=== PATIENT | male | born 1970 | race African-American/Black ===

== ENCOUNTER 2021-04-08 01:03 | Inpatient (IN) | payer OTHER ==
[2021-04-08 01:38] VITALS: BMI 19.7
[2021-04-08] MEDS ORDERED: MAGNESIUM CITRATE 300 ML BOTTLE PO PRN (02:29)
[2021-04-08] MEDS ORDERED: BISMUTH SUBSALICYLATE 524 MG/30 ML PO PRN (02:29)
[2021-04-08] MEDS ORDERED: ACETAMINOPHEN 325 MG TABLET (FP) PO PRN ×2 (02:29)
[2021-04-08] MEDS ORDERED: MENTHOL/PHENOL 1 EACH UD MM PRN (02:29)
[2021-04-08] MEDS ORDERED: NICOTINE POLACRILEX 2 MG GUM BUC PRN (02:29)
[2021-04-08] MEDS ORDERED: MAGNESIUM HYDROX 2400MG/30ML ORAL SUSPENSION 30 ML CUP PO PRN (02:29)
[2021-04-08] MEDS ORDERED: ONDANSETRON *ODT* 4 MG TABLET SL PRN (02:29)
[2021-04-08] MEDS ORDERED: MAG HYDROX/AL HYDROX/SIMETH 30 ML UNIT-DOSE CUP PO PRN (02:29)
[2021-04-08] MEDS: IBUPROFEN 400 MG TABLET (FP) PO PRN ×2 (06:03→22:25)
[2021-04-08] MEDS: METHOCARBAMOL 500 MG TABLET PO PRN ×2 (06:04→22:27)
[2021-04-08] MEDS: PRENATAL VITAMINS W/ FOLIC ACID TABLET (FP) PO SCH (10:25)
[2021-04-08] MEDS: NICOTINE 14 MG/24 HOURS TOPICAL PATCH TD SCH (10:25)
[2021-04-08] MEDS: methaDONE HCL 40 MG DISPERSABLE TABLET PO SCH (10:47)
[2021-04-08 13:00] LABS: HIV INTERPRETATION NEGATIVE (NEGATIVE)
[2021-04-08] MEDS: MINERAL OIL/PETROLAT/WATER TOPICAL CREAM 113 GM JAR TP SCH ×2 (15:22→22:23)
[2021-04-08] MEDS: MELATONIN 5 MG TABLETS PO SCH (22:23)
[2021-04-08] MEDS: THIAMINE HCL 100 MG TABLET (FP) PO SCH (22:23)
[2021-04-09] MEDS: methaDONE HCL 40 MG DISPERSABLE TABLET PO SCH (06:15)
[2021-04-09] MEDS: METHOCARBAMOL 500 MG TABLET PO PRN ×2 (06:15→22:24)
[2021-04-09] MEDS: IBUPROFEN 400 MG TABLET (FP) PO PRN (06:15)
[2021-04-09 09:58] LABS: HEMATOCRIT 39.7 % (35.4-49); HEMOGLOBIN 13.2 GM/dL (11.7-16.9); MCH 29.1 pg (25.7-33.7); MCHC 33.3 g/dl (32.0-35.9); MEAN CELL VOLUME 87.3 fl (80-96); MEAN PLT VOLUME 8.2 fl (7.5-11.1); PLATELET COUNT 262 10^3/uL (134-434); RBC 4.55 M/mm3 (4.00-5.60); RDW 14.4 % (11.9-15.9); WHITE BLOOD COUNT 3.1 K/mm3 (4.0-10.0)
[2021-04-09 10:06] LABS: ALBUMIN 3.1 g/dl (3.4-5.0); BLOOD UREA NITROGEN 11.8 mg/dL (7-18); CALCIUM 8.6 mg/dL (8.5-10.1)
[2021-04-09 10:10] LABS: CREATININE 0.9 mg/dL (0.55-1.3)
[2021-04-09 10:11] LABS: BILIRUBIN,TOTAL 0.7 mg/dL (0.2-1); TOT PROT 6.8 g/dl (6.4-8.2)
[2021-04-09] MEDS: MINERAL OIL/PETROLAT/WATER TOPICAL CREAM 113 GM JAR TP SCH ×2 (10:17→22:23)
[2021-04-09] MEDS: PRENATAL VITAMINS W/ FOLIC ACID TABLET (FP) PO SCH (10:18)
[2021-04-09] MEDS: NICOTINE 14 MG/24 HOURS TOPICAL PATCH TD SCH (10:19)
[2021-04-09] MEDS: THIAMINE HCL 100 MG TABLET (FP) PO SCH (22:22)
[2021-04-09] MEDS: MELATONIN 5 MG TABLETS PO SCH (22:22)
[2021-04-10] MEDS: IBUPROFEN 400 MG TABLET (FP) PO PRN (05:50)
[2021-04-10] MEDS: methaDONE HCL 40 MG DISPERSABLE TABLET PO SCH (05:50)
[2021-04-10] MEDS: METHOCARBAMOL 500 MG TABLET PO PRN (05:50)
[2021-04-10 08:51] VITALS: BP 107/60; PULSE 65; TEMP 97.3
[2021-04-10] MEDS: PRENATAL VITAMINS W/ FOLIC ACID TABLET (FP) PO SCH (09:30)
[2021-04-10] MEDS: MINERAL OIL/PETROLAT/WATER TOPICAL CREAM 113 GM JAR TP SCH (09:30)
[2021-04-10] MEDS: NICOTINE 14 MG/24 HOURS TOPICAL PATCH TD SCH (09:30)
== END 2021-04-10 10:29 | disposition home or self-care (01) | DRG 774 ==
LOC: YASAS 01:03 → Y3N 02:34 → UNDOADMIN 02:34 → Y3N 04-09 02:34
PROVIDERS: ADMIT Allergy & Immunology; ATTEND Allergy & Immunology
PROC: HZ2ZZZZ Detoxification Services for Substance Abuse Treatment (ICD-10-PCS; principal; 2021-04-09)
DX: F10.230 Alcohol dependence with withdrawal, uncomplicated (principal); F14.20 Cocaine dependence, uncomplicated; F12.20 Cannabis dependence, uncomplicated; F17.210 Nicotine dependence, cigarettes, uncomplicated; J45.20 Mild intermittent asthma, uncomplicated; K21.9 Gastro-esophageal reflux disease without esophagitis; Z59.01 Sheltered homelessness; Z56.0 Unemployment, unspecified
CPT/HCPCS: 36415; 80053; 85027; 86780; 87389; 93005; 93010; C9803; U0003; U0005

== ENCOUNTER 2021-04-22 21:52 | Inpatient (IN) | payer OTHER ==
[2021-04-22 22:22] VITALS: BMI 19.3
[2021-04-23] MEDS ORDERED: MENTHOL/PHENOL 1 EACH UD MM PRN (00:15)
[2021-04-23] MEDS ORDERED: guaiFENesin 200 MG/10 ML 10 ML UNIT-DOSE CUPS PO PRN (00:15)
[2021-04-23] MEDS ORDERED: NICOTINE 10 MG CARTRIDGE (INHALER) IH PRN (00:15)
[2021-04-23] MEDS ORDERED: MAGNESIUM CITRATE 300 ML BOTTLE PO PRN (00:15)
[2021-04-23] MEDS ORDERED: BISMUTH SUBSALICYLATE 524 MG/30 ML PO PRN (00:15)
[2021-04-23] MEDS ORDERED: NALOXONE (NARCAN) HCL 4 MG/0.1 ML SPRAY NS PRN (00:15)
[2021-04-23] MEDS ORDERED: DICYCLOMINE HCL 10 MG CAPSULE PO PRN (00:15)
[2021-04-23] MEDS ORDERED: ACETAMINOPHEN 325 MG TABLET (FP) PO PRN ×2 (00:15)
[2021-04-23] MEDS ORDERED: MAG HYDROX/AL HYDROX/SIMETH 30 ML UNIT-DOSE CUP PO PRN (00:15)
[2021-04-23] MEDS ORDERED: NALOXONE HCL 0.4 MG/ML VIAL IM PRN (00:15)
[2021-04-23] MEDS ORDERED: MAGNESIUM HYDROX 2400MG/30ML ORAL SUSPENSION 30 ML CUP PO PRN (00:15)
[2021-04-23] MEDS ORDERED: METHOCARBAMOL 500 MG TABLET PO PRN (00:15)
[2021-04-23] MEDS ORDERED: P-EPHED 60MG/TRIPROLIDI 2.5MG TABLET PO PRN (00:15)
[2021-04-23] MEDS ORDERED: TRIMETHOBENZAMIDE HCL 200MG/2ML INJ IM ONE (00:18)
[2021-04-23] MEDS: hydrOXYzine PAMOATE 25 MG CAPSULE (FP) PO SCH ×6 (06:50→23:41)
[2021-04-23] MEDS: IBUPROFEN 400 MG TABLET (FP) PO PRN ×2 (07:53→15:03)
[2021-04-23] MEDS ORDERED: methaDONE HCL 10 MG TABLET PO ONE (09:01)
[2021-04-23] MEDS: PRENATAL VITAMINS W/ FOLIC ACID TABLET (FP) PO SCH (10:27)
[2021-04-23] MEDS: NICOTINE 21 MG/24 HOURS TOPICAL PATCH TD SCH (10:28)
[2021-04-23] MEDS ORDERED: methaDONE 40 MG, methaDONE 10 MG PO ONE (11:15)
[2021-04-23] MEDS ORDERED: cloNIDine HCL 0.1 MG TABLET PO PRN (11:16)
[2021-04-23] MEDS ORDERED: FAMOTIDINE 10 MG TABLET PO SCH (11:30)
[2021-04-23] MEDS: ONDANSETRON *ODT* 4 MG TABLET SL PRN (16:20)
[2021-04-23] MEDS ORDERED: TRIMETHOBENZAMIDE HCL 200MG/2ML INJ IM PRN (18:26)
[2021-04-23] MEDS ORDERED: diazePAM 5 MG TABLET PO PRN (18:55)
[2021-04-23] MEDS: PANTOPRAZOLE 40 MG TABLET PO ONE ×2 (20:30→23:41)
[2021-04-23] MEDS ORDERED: MELATONIN 5 MG TABLETS PO SCH (22:00)
[2021-04-23] MEDS ORDERED: THIAMINE HCL 100 MG TABLET (FP) PO SCH (22:00)
[2021-04-24] MEDS: ONDANSETRON *ODT* 4 MG TABLET SL PRN ×2 (01:47→09:12)
[2021-04-24] MEDS ORDERED: TRIMETHOBENZAMIDE HCL 200MG/2ML INJ IM ONE (04:19)
[2021-04-24] MEDS ORDERED: methaDONE HCL 10 MG TABLET PO SCH (06:00)
[2021-04-24] MEDS: hydrOXYzine PAMOATE 25 MG CAPSULE (FP) PO SCH ×3 (06:50→14:01)
[2021-04-24] MEDS ORDERED: methaDONE 40 MG, methaDONE 10 MG PO ONE (08:00)
[2021-04-24] MEDS ORDERED: methaDONE HCL 10 MG TABLET ONE (08:47)
[2021-04-24] MEDS ORDERED: methaDONE HCL 40 MG DISPERSABLE TABLET ONE (08:47)
[2021-04-24 09:20] VITALS: BP 132/77; PULSE 51; TEMP 99.6
[2021-04-24] MEDS: NICOTINE 21 MG/24 HOURS TOPICAL PATCH TD SCH (10:54)
[2021-04-24] MEDS: PRENATAL VITAMINS W/ FOLIC ACID TABLET (FP) PO SCH (10:54)
[2021-04-24] MEDS ORDERED: methaDONE HCL 10 MG TABLET PO ONE (11:00)
[2021-04-24 12:13] LABS: HEMATOCRIT 40.3 % (35.4-49); HEMOGLOBIN 13.5 GM/dL (11.7-16.9); MCHC 33.5 g/dl (32.0-35.9); MEAN CELL VOLUME 86.6 fl (80-96); MEAN PLT VOLUME 7.9 fl (7.5-11.1); PLATELET COUNT 322 10^3/uL (134-434); RBC 4.65 M/mm3 (4.00-5.60); RDW 13.6 % (11.9-15.9)
[2021-04-24 12:21] LABS: BLOOD UREA NITROGEN 9.3 mg/dL (7-18); CALCIUM 8.6 mg/dL (8.5-10.1)
[2021-04-24 12:25] LABS: CREATININE 0.8 mg/dL (0.55-1.3)
[2021-04-24 12:26] LABS: BILIRUBIN,TOTAL 0.9 mg/dL (0.2-1); TOT PROT 6.9 g/dl (6.4-8.2)
[2021-04-25] MEDS ORDERED: methaDONE 40 MG, methaDONE 10 MG PO SCH (06:00)
== END 2021-04-24 10:10 | disposition short-term general hospital (02) | DRG 773 ==
LOC: YASAS 21:52 → Y6N 04-23 01:57
PROVIDERS: ADMIT Allergy & Immunology; ATTEND Allergy & Immunology
PROC: HZ2ZZZZ Detoxification Services for Substance Abuse Treatment (ICD-10-PCS; principal; 2021-04-23)
DX: F10.230 Alcohol dependence with withdrawal, uncomplicated (principal); F11.20 Opioid dependence, uncomplicated; F14.20 Cocaine dependence, uncomplicated; F12.20 Cannabis dependence, uncomplicated; F17.210 Nicotine dependence, cigarettes, uncomplicated; J45.909 Unspecified asthma, uncomplicated; K52.9 Noninfective gastroenteritis and colitis, unspecified; M43.9 Deforming dorsopathy, unspecified; M54.50 Low back pain, unspecified; G89.29 Other chronic pain
CPT/HCPCS: 36415; 80053; 85027; 86780; C9803; Q0162; U0003; U0005

== ENCOUNTER 2021-04-24 10:24 | Emergency (ER) | payer OTHER ==
[2021-04-24 10:49] VITALS: BMI 20.3
[2021-04-24] MEDS ORDERED: ACETAMINOPHEN 1000 MG/100 ML VIAL IVPB ONE (11:53)
[2021-04-24] MEDS ORDERED: methaDONE HCL 10 MG TABLET (FOR DETOX USE ONLY) PO ONE (11:54)
[2021-04-24] MEDS ORDERED: LACTATED RINGERS SOLUTION 1000 ML INFUS.BAG IV ONE (11:54)
[2021-04-24] MEDS ORDERED: LIDOCAINE 5% TOPICAL PATCH TP ONE (11:55)
[2021-04-24] MEDS ORDERED: methaDONE HCL 10 MG TABLET ONE (12:24)
[2021-04-24] MEDS ORDERED: methaDONE HCL 40 MG DISPERSABLE TABLET ONE (12:24)
[2021-04-24] MEDS ORDERED: LIDOCAINE 5% TOPICAL PATCH ONE ×2 (12:24→17:56)
[2021-04-24] MEDS ORDERED: ACETAMINOPHEN INJECTION 100 ML IVPB ONE (12:24)
[2021-04-24] MEDS ORDERED: ONDANSETRON 4 MG/2 ML VIAL IVPUSH ONE (12:56)
[2021-04-24 13:11] LABS: BASO % 0.7 % (0-2.0); EOS % 0.2 % (0-4.5); HEMATOCRIT 42.7 % (35.4-49); HEMOGLOBIN 14.2 GM/dL (11.7-16.9); LYMPH % 22.7 % (8-40); MCH 29.1 pg (25.7-33.7); MCHC 33.3 g/dl (32.0-35.9); MEAN CELL VOLUME 87.3 fl (80-96); MONO % 8.2 % (3.8-10.2); NEUT % 68.2 % (42.8-82.8); RBC 4.89 M/mm3 (4.00-5.60); RDW 13.9 % (11.9-15.9); WHITE BLOOD COUNT 7.8 K/mm3 (4.0-10.0)
[2021-04-24 13:17] LABS: INR 1.09 (0.83-1.09); PROTHROMBIN TIME (PATIENT) 12.2 SEC (9.7-13.0)
[2021-04-24 13:20] LABS: ACTIVATED PTT 21.5 SECONDS (25.2-36.5)
[2021-04-24 13:29] LABS: CHLORIDE 108 mmol/L (98-107); SODIUM 140 mmol/L (136-145)
[2021-04-24 13:31] LABS: ANION GAP 6 MMOL/L (8-16); BLOOD UREA NITROGEN 8.9 mg/dL (7-18); CO2 26 mmol/L (21-32); LIPASE 482 U/L (73-393)
[2021-04-24 13:32] LABS: ALBUMIN 2.8 g/dl (3.4-5.0); GLUCOSE,RANDOM 85 mg/dL (74-106); MAGNESIUM 1.9 mg/dL (1.8-2.4)
[2021-04-24 13:34] LABS: CREATININE 0.7 mg/dL (0.55-1.3); PHOSPHOROUS 3.7 mg/dL (2.5-4.9); SGOT/AST 65 U/L (15-37); SGPT/ALT 22 U/L (13-61)
[2021-04-24 13:36] LABS: BILIRUBIN,TOTAL 0.5 mg/dL (0.2-1); MEAN PLT VOLUME 8.2 fl (7.5-11.1); PLATELET COUNT 281 10^3/uL (134-434); TOT PROT 6.9 g/dl (6.4-8.2)
[2021-04-24 13:37] LABS: ALK PHOS 69 U/L (45-117)
[2021-04-24] MEDS ORDERED: ONDANSETRON 4 MG/2 ML VIAL ONE (13:53)
[2021-04-24] MEDS ORDERED: KETOROLAC TROMETHAMINE 15 MG/ML VIAL IVPUSH ONE (15:57)
[2021-04-24] MEDS ORDERED: SODIUM CHLORIDE 0.9% 500 ML INFUS.BAG IV ONE (16:13)
[2021-04-24] MEDS ORDERED: KETOROLAC TROMETHAMINE 15 MG/ML VIAL ONE (16:36)
[2021-04-24 18:00] VITALS: BP 136/84; PULSE 53; TEMP 98.3
[2021-04-24] MEDS ORDERED: LIDOCAINE PATCH REMOVAL MC ONE (22:00)
== END 2021-04-24 18:00 | disposition home or self-care (01) ==
LOC: JER 10:24
PROC: 3E033GC Introduction of Other Therapeutic Substance into Peripheral Vein, Percutaneous Approach (ICD-10-PCS; principal; 2021-04-24)
DX: R10.84 Generalized abdominal pain (principal); R11.2 Nausea with vomiting, unspecified
CPT/HCPCS: 36415; 71045-TC-FY; 74177-TC; 80053; 83690; 83735; 84100; 84439; 84443; 84484; 85025; 85610; 85730; 93005; 93010; 99285-25; J0131; Q9967